=== PATIENT | male | born 1995 | race Caucasian/White ===

== ENCOUNTER 2022-06-28 22:10 | Emergency (ER) | payer BC ==
[2022-06-28] MEDS ORDERED: cefTRIAXone 500 MG in Lidocaine 1% 1 ML IM ONE (23:11)
[2022-06-28] MEDS ORDERED: Azithromycin 250 MG Tab PO STA (23:12)
[2022-06-29 00:48] LABS: C. TRACHOMATIS BY PCR NOT DETECTED; N. GONORRHOEAE BY PCR NOT DETECTED
== END 2022-06-28 23:51 | disposition home or self-care (01) ==
LOC: MW.ED 22:10
DX: A64 Unspecified sexually transmitted disease (principal); Z91.018 Allergy to other foods
CPT/HCPCS: 36415; 81001; 86592; 87389; 87491; 87591; 96372; 99283; A9270; J0696; J3490